=== PATIENT | female | born 1960 | race Caucasian/White ===

== ENCOUNTER 2020-12-15 09:38 | Emergency (ER) | payer OTHER ==
[2020-12-15 10:22] LABS: BUN/CREAT RATIO (CALC) 17.3 RATIO; CREATININE 0.75 mg/dL (0.51-0.95); POTASSIUM 3.3 mmol/L (3.5-5.1)
[2020-12-15 10:36] LABS: BASOPHIL 0.6 % (0-2); EOSINOPHIL 0.8 % (0-5); HCT 46.6 % (37.0-47.0); HGB 15.5 g/dl (12.5-16.0); LYMPHOCYTE 14.7 % (15-48); MCH 29.3 pg (25.0-31.0); MCHC 33.3 g/dL (32.0-36.0); MCV 88.1 fL (78.0-100.0); MONOCYTE 12.8 % (0-12); MPV 11.4 fL (6.0-9.5); NEUTROPHIL 70.1 % (41-80); NRBC 0; PLT 196 K/uL (150-400); RBC 5.29 M/uL (4.20-5.40); RDW 13.9 % (11.5-14.0); WBC 5.2 K/uL (4.0-10.5)
[2020-12-15 11:30] LABS: CORONAVIRUS 2019 SARS-COV-2 POSITIVE (NEGATIVE); INFLUENZA A NAA NEGATIVE (NEGATIVE)
[2020-12-15] MEDS ORDERED: ONDANSETRON ODT4 MG PO (11:48)
[2020-12-15] MEDS ORDERED: PREDNISONE 20MG20 MG PO (11:48)
== END 2020-12-15 11:58 | disposition home or self-care (01) ==
LOC: FER 09:38
PROVIDERS: Emergency Medicine
DX: U07.1 COVID-19 (principal)
CPT/HCPCS: 36415; 71045; 80048; 85025; U0002